=== PATIENT | female | born 1965 | race Caucasian/White ===

== ENCOUNTER 2017-05-26 07:26 | Emergency (ER) | payer MEDICAID ==
[2017-05-26 07:30] VITALS: RESP 20
--- NOTE | 2017-05-26 07:50 | C.PDOC ---
History Of Present Illness Patient is a 52-year-old female, PMHx includes Anemia, Gastritis, Hiatal Hernia , Asthma, and Lupus, presents to the emergency department with complaints of upper and lower abdominal pain that started last night. Pain is intermittent in nature, non-radiating and described as an "achy and sharp" sensation. Associated symptoms include nausea, and five episodes of non-bloody diarrhea. Patient denies fevers, symptoms, back pain, vomiting, shortness of breath, dizziness, or any other associated symptoms. No other complaints at this time. PMD Alia Conway MD. Time Seen by Provider: 05/26/17 07:31 Chief Complaint (Nursing): Abdominal Pain History Per: Patient History/Exam Limitations: no limitations Onset/Duration Of Symptoms: Hrs Current Symptoms Are (Timing): Still Present Severity: Moderate Location Of Pain/Discomfort: Other (Upper and lower) Quality Of Discomfort: Sharp, Aching Associated Symptoms: Nausea, Diarrhea Past Medical History Reviewed: Historical Data, Nursing Documentation, Vital Signs Vital Signs: Last Vital Signs Temp 99.0 F 05/26/17 09:24 Pulse 66 05/26/17 09:24 Resp 20 05/26/17 09:24 BP 127/78 05/26/17 09:24 Pulse Ox 97 05/26/17 12:27 - Medical History PMH: Anemia, Asthma, Gastritis, Hiatal Hernia Surgical History: Cholecystectomy - [facility] Procedures CLOSED ENDOSCOPIC BIOPSY OF LARGE INTESTINE (04/25/13) ESOPHAGOGASTRODUODENOSCOPY [EGD] W/CLOSED BIOPSY (04/25/13) Family History: States: No Known Family Hx - Social History Hx Tobacco Use: No Hx Alcohol Use: No Hx Substance Use: No - Immunization History Hx Tetanus Toxoid Vaccination: Yes Hx Influenza Vaccination: (unk) Hx Pneumococcal Vaccination: (unk) Review Of Systems Except As Marked, All Systems Reviewed And Found Negative. Constitutional: Negative for: Fever, Chills Cardiovascular: Negative for: Chest Pain Respiratory: Negative for: Shortness of Breath Gastrointestinal: Positive for: Nausea, Abdominal Pain, Diarrhea. Negative for : Vomiting, Constipation, Hematochezia Genitourinary: Negative for: Dysuria, Hematuria Musculoskeletal: Negative for: Back Pain Neurological: Negative for: Headache, Dizziness Physical Exam - Physical Exam Appears: Non-toxic, No Acute Distress Skin: Warm, Dry, No Rash Head: Atraumatic, Normacephalic Eye(s): bilateral: Normal Inspection, PERRL Nose: Normal Oral Mucosa: Moist Lips: Normal Appearing Neck: Normal ROM Cardiovascular: Rhythm Regular, No Murmur Respiratory: Normal Breath Sounds, No Accessory Muscle Use Gastrointestinal/Abdominal: Soft, Tenderness (epigastric), No Guarding, No Rebound Extremity: Normal ROM Neurological/Psych: Oriented x3, Normal Speech ED Course And Treatment - Laboratory Results Result Diagrams: 05/26/17 08:01 05/26/17 08:01 O2 Sat by Pulse Oximetry: 97 (on RA) Pulse Ox Interpretation: Normal Medical Decision Making Medical Decision Making: Impression 52y/o F comes in w/ abdominal pain since last night. Diff Dx (includes but not limited to) Gastritis vs Gastroenteritis Prior Visits Notes and records from previous visits were reviewed. Patient last seen in ED on 06/30/14 for abdominal pain Plan: * CMP, Lipase * CBC * Pepcid, IVFs, Zofran * Urinalysis * Reassess and Disposition Progress: Patient feels better after being given medication. Patient is resting comfortably, abdomen remains soft, and patient is tolerating PO. Patient feels comfortable going home. She will be discharged for outpatient f/u with PMD. All questions were answered. Disposition Counseled Patient/Family Regarding: Diagnosis, Need For Followup, Rx Given - Disposition Referrals: Samir Wills MD [Medical Doctor] - Disposition: HOME/ ROUTINE Disposition Time: 09:24 Condition: IMPROVED Additional Instructions: Ms Serna, thank you for letting us take care of you today. Your provider was Dr. Winter. You were treated for Acute Gastroenteritis/ Abdominal Pain. The emergency medical care you received today was directed at your acute symptoms. If you were prescribed any medication, please fill it and take as directed. It may take several days for your symptoms to resolve. Return to the Emergency Department if your symptoms worsen, do not improve, or if you have any other problems. Please contact your doctor or call one of the physicians/clinics you have been referred to that are listed on the Patient Visit Information form that is included in your discharge packet. Bring any paperwork you were given at discharge with you along with any medications you are taking to your follow up visit. Our treatment cannot replace ongoing medical care by a primary care provider (PCP) outside of the emergency department. Thank you for allowing the [facility] team to be part of your care today. If you had an X-Ray or CT scan: A Radiologist will review the ED reading if any change in treatment is needed we will contact you. If you had a blood, urine, or wound culture: It will take several days for the results, if any change in treatment is needed we will contact you. If you had an STI test: It will take 48 hours for the results. Please call after 1 week if you have not heard back. Prescriptions: Nitrofurantoin Macrocrystals [Macrobid] 100 mg PO BID #9 cap Ondansetron ODT [Zofran ODT] 4 mg PO Q6 #14 odt Ranitidine HCl [Zantac] 150 mg PO BID PRN #30 tablet PRN Reason: Pain, Mild (1-3) Instructions: Urinary Tract Infection in Women (ED), Gastroenteritis (ED) Forms: Gen Discharge Inst Georgian Print Language: AMERICAN - POA Present On Arrival: None - Clinical Impression Clinical Impression: Abdominal pain, UTI (urinary tract infection), Gastroenteritis - Scribe Statement The provider has reviewed the documentation as recorded by the Scribe (Blossom Michael)
[2017-05-26] MEDS ORDERED: Sodium Chloride 0.9% 1,000 ML IV ONE (07:53)
--- NOTE | 2017-05-26 07:54 | C.PDOC ---
Time Seen by Provider: 05/26/17 07:31 Chief Complaint (Nursing): Abdominal Pain Past Medical History Vital Signs: Last Vital Signs Temp 98.7 F 05/26/17 07:29 Pulse 85 05/26/17 07:29 Resp 20 05/26/17 07:29 BP 154/63 H 05/26/17 07:29 Pulse Ox 97 05/26/17 07:29 - Medical History PMH: Anemia, Asthma, Gastritis, Hiatal Hernia Surgical History: Cholecystectomy - [facility] Procedures CLOSED ENDOSCOPIC BIOPSY OF LARGE INTESTINE (04/25/13) ESOPHAGOGASTRODUODENOSCOPY [EGD] W/CLOSED BIOPSY (04/25/13) - Social History Hx Tobacco Use: No Hx Alcohol Use: No Hx Substance Use: No - Immunization History Hx Tetanus Toxoid Vaccination: Yes Hx Influenza Vaccination: (unk) Hx Pneumococcal Vaccination: (unk) ED Course And Treatment O2 Sat by Pulse Oximetry: 97
[2017-05-26] MEDS ORDERED: Sodium Chloride 0.9% 1,000 ML ONE (08:05)
[2017-05-26 08:09] LABS: BASO # 0.1 K/uL (0.0-0.2); BASO % 1.4 % (0.0-2.0); EOS % 0.5 % (0.0-4.0); HEMOGLOBIN 13.9 g/dL (11.0-16.0); LYMPH # 0.8 K/uL (1.0-4.3); LYMPH % 8.1 % (20.0-40.0); MEAN CELL VOLUME 87.1 fL (81.0-99.0); MEAN CORPUSCULAR HEMOGLOBIN 28.4 pg (27.0-31.0); MEAN CORPUSCULAR HGB CONC 32.6 g/dL (33.0-37.0); MEAN PLATELET VOLUME 8.6 fL (7.2-11.7); MONO # 0.6 K/uL (0.0-0.8); MONO % 6.5 % (0.0-10.0); NEUT # 8.2 K/uL (1.8-7.0); NEUT % 83.5 % (50.0-75.0); PLATELET COUNT 210 K/uL (130-400); RBC 4.89 Mil/uL (3.80-5.20); RED CELL DISTRIBUTION WIDTH 13.7 % (11.5-14.5); WHITE BLOOD COUNT 9.8 K/uL (4.8-10.8)
[2017-05-26 08:19] LABS: ALBUMIN 4.3 g/dL (3.5-5.0)
[2017-05-26 08:21] LABS: GFR AFRICAN-AMERICAN > 60; GFR NON-AFRICAN AMERICAN > 60
[2017-05-26 08:22] LABS: ALB/GLOB RATIO 1.3 (1.0-2.1); ALT/SGPT 30 U/L (9-52); AST/SGOT 19 U/L (14-36); BLOOD UREA NITROGEN 16 mg/dL (7-17); CALCIUM 9.3 mg/dl (8.6-10.4); LIPASE 101 U/L (23-300)
[2017-05-26 08:51] LABS: BANDS 9 % (0-2); EOSINOPHIL 2 % (0-4); LYMPHOCYTE 9 % (20-40); MONOCYTE 4 % (0-10); NEUTROPHIL 76 % (50-75); PLATELET ESTIMATE NORMAL (NORMAL); TOTAL CELLS COUNTED 100
[2017-05-26 08:54] LABS: SQUAMOUS EPITHIAL 3 /hpf (0-5); URINE BACTERIA RARE (<OCC); URINE BILIRUBIN NEGATIVE (NEGATIVE); URINE BLOOD NEGATIVE (NEGATIVE); URINE CLARITY Clear (Clear); URINE COLOR Straw (YELLOW); URINE GLUCOSE (UA) NORMAL (Normal); URINE LEUKOCYTE ESTERASE 2+ Leu/uL (Negative); URINE NITRATE NEGATIVE (NEGATIVE); URINE PROTEIN NEGATIVE (NEGATIVE); URINE UROBILINOGEN NORMAL mg/dL (0.2-1.0)
[2017-05-26 09:27] VITALS: BP 127/78; PULSE 66; TEMP 99
[2017-05-26 12:27] VITALS: O2SAT 97
== END 2017-05-26 09:26 | disposition home or self-care (01) ==
LOC: C.ER 07:26
DX: N39.0 Urinary tract infection, site not specified (principal); K52.9 Noninfective gastroenteritis and colitis, unspecified; R10.13 Epigastric pain
CPT/HCPCS: 80053; 81001; 83690; 85025; 96361; 96374; 96375; 99285; J2405; J7040

== ENCOUNTER 2019-03-18 10:55 | Outpatient (CLI) | payer MEDICAID | END 2019-03-18 10:56 | disposition home or self-care (01) | LOC: C.CTH 10:55 ==